=== PATIENT | male | born 1990 | race African-American/Black ===

== ENCOUNTER 2018-07-14 16:21 | Emergency (ER) | payer MEDICAID ==
[~2018-07-14] VITALS: Ht 182.9 cm; Wt 70.8 kg
--- NOTE | 2018-07-14 17:00 | NUR ---
patient presented to the ER complaint of back pain, on room air, breathing evenly and unlabored. Kept comfortable, will continue to monitor accordingly.
[2018-07-14] MEDS ORDERED: CYCLOBENZAPRINE 10 MG TABLET PO ONE (17:30)
[2018-07-14] MEDS ORDERED: KETOROLAC TROMETHAMINE INJ 60 MG/2 ML VIAL IM ONE ×2 (17:30→18:04)
[2018-07-14] MEDS ORDERED: CYCLOBENZAPRINE 10 MG TABLET ONE (18:04)
[2018-07-14 18:57] VITALS: BP 135/81
--- NOTE | 2018-07-14 18:58 | NUR ---
Patient discharged to home in stable condition. Written and verbal after care instructions given. Patient verbalizes understanding of instruction.
== END 2018-07-14 18:57 | disposition home or self-care (01) ==
LOC: ER 16:25
DX: M54.5 Low back pain (principal); W18.39XA Other fall on same level, initial encounter; Y93.67 Activity, basketball; Y92.310 Basketball court as the place of occurrence of the external cause; Y99.8 Other external cause status
CPT/HCPCS: 96372; 99283; J1885